=== PATIENT | female | born 1980 | race Caucasian/White ===

== ENCOUNTER 2022-06-19 10:10 | Day surgery (SDC) | payer BC ==
[2022-06-19] MEDS ORDERED: hydrALAZINE 20 MG/ML VIAL SLOW IVP PRN (12:10)
== END 2022-06-19 12:30 | disposition home health service (06) ==
LOC: CSHLD/OP 10:10
PROVIDERS: ATTEND Obstetrics & Gynecology
DX: O47.03 False labor before 37 completed weeks of gestation, third trimester (principal); O09.523 Supervision of elderly multigravida, third trimester; O99.513 Diseases of the respiratory system complicating pregnancy, third trimester; J45.909 Unspecified asthma, uncomplicated; Z88.5 Allergy status to narcotic agent; Z88.1 Allergy status to other antibiotic agents; Z3A.36 36 weeks gestation of pregnancy
CPT/HCPCS: 99283

== ENCOUNTER 2022-06-26 14:10 | Day surgery (SDC) | payer BC ==
[2022-06-26 14:47] VITALS: BMI 28.3
== END 2022-06-26 15:35 | disposition home or self-care (01) ==
LOC: CSHLD/OP 14:10
PROVIDERS: ATTEND Obstetrics & Gynecology
DX: O47.1 False labor at or after 37 completed weeks of gestation (principal); Z88.0 Allergy status to penicillin; Z88.5 Allergy status to narcotic agent; Z3A.37 37 weeks gestation of pregnancy
CPT/HCPCS: 99282

== ENCOUNTER 2022-07-06 09:57 | Inpatient (IN) | payer BC ==
[2022-07-06] MEDS ORDERED: hydrALAZINE 20 MG/ML VIAL SLOW IVP PRN ×2 (10:25→10:58)
[2022-07-06] MEDS ORDERED: Ondansetron ODT 4 MG TAB PO PRN (10:26)
[2022-07-06] MEDS ORDERED: Ibuprofen 800 MG TAB PO PRN (10:58)
[2022-07-06] MEDS ORDERED: Promethazine HCl 25 MG/ML VIAL IM PRN (10:58)
[2022-07-06] MEDS ORDERED: Ondansetron PF 4 MG/2 ML Vial IVP PRN (10:58)
[2022-07-06] MEDS ORDERED: Lidocaine 1% (PF) 30 ML VIAL SC PRN (10:58)
[2022-07-06] MEDS ORDERED: NS w/ Oxytocin 30 units 500 ML IV SCH (11:00)
[2022-07-06 12:00] LABS: Fetal Membranes Rupture No Membranes Rupture (No Rupture)
[2022-07-06 12:57] LABS: Hemoglobin 12.9 g/dL (12.0-15.5); Mean Corpuscular HGB CONC 34.9 g/dL (32.0-36.0); Mean Corpuscular Hemoglobin 29.9 pg (27.0-33.0); Mean Corpuscular Volume 85.8 fl (81.6-98.3); Mean Platelet Volume 12.5 fl (7.4-10.4); Platelet Count 242 10x3/uL (150-450); RBC Distribution Width 13.2 % (11.5-14.5); Red Blood Cell (RBC) Count 4.31 10x6/uL (3.90-5.03); White Blood Cell (WBC) Count 9.9 10x3/uL (3.5-10.5)
[2022-07-06 13:22] LABS: HBSAg Index 0.14 S/CO (0-0.99); Hep B Surf Ag Non-Reactive S/CO (NonReactive)
[2022-07-06 13:23] LABS: Syphilis Antibody Nonreactive (Nonreactive); Syphilis Antibody Index 0.03 S/CO (<1.00 Non-Reactive)
[2022-07-06] MEDS ORDERED: Butorphanol Tartrate 1 MG/ML VIAL ONE ×3 (13:35→21:11)
[2022-07-06] MEDS: Misoprostol 100 MCG TAB PO SCH ×2 (13:39→16:49)
[2022-07-06 14:39] LABS: SARS-CoV-2 NAA Rapid Test Not Detected (NotDetected)
[2022-07-06] MEDS ORDERED: Lidocaine 2% MPF 10 ML AMP (For Epidural Use) ONE (19:05)
[2022-07-06] MEDS ORDERED: Bupivacaine/Epinephrine 0.25% 30 ML VIAL ONE (19:05)
[2022-07-06] MEDS: Lactated Ringer's 1,000 ML IV SCH (21:13)
[2022-07-07] MEDS ORDERED: Butorphanol Tartrate 1 MG/ML VIAL ONE (01:57)
[2022-07-07] MEDS: Misoprostol 100 MCG TAB PO SCH ×6 (01:59→17:32)
[2022-07-07 02:02] VITALS: BMI 28.3
[2022-07-07] MEDS ORDERED: Butorphanol Tartrate 1 MG/ML VIAL SLOW IVP PRN (04:00)
[2022-07-07] MEDS: Lactated Ringer's 1,000 ML IV SCH ×2 (06:43→08:46)
[2022-07-07] MEDS ORDERED: Fentanyl 2 mcg/Bup 0.1% Cadd 100 ML ONE (07:36)
[2022-07-07] MEDS: Fentanyl 2 mcg/Bupivacaine 0.1% Cassette 100 ML EPIDURAL SCH ×2 (08:30→13:37)
[2022-07-07] MEDS ORDERED: Moisturizing Cream (Eucerin) 113 GM JAR TOP PRN ×2 (08:35→15:07)
[2022-07-07] MEDS ORDERED: ePHEDrine Sulfate 50 MG/10 ML VIAL SLOW IVP PRN (08:35)
[2022-07-07] MEDS ORDERED: Naloxone HCl 0.4 mg/ml Vial IVP PRN ×4 (08:35→15:07)
[2022-07-07] MEDS ORDERED: Promethazine HCl 25 MG/ML VIAL IM PRN ×2 (08:35→15:07)
[2022-07-07] MEDS ORDERED: Lactated Ringer's 500 ML IV PRN (08:35)
[2022-07-07] MEDS ORDERED: Ondansetron PF 4 MG/2 ML Vial IVP PRN ×3 (08:35→17:11)
[2022-07-07] MEDS ORDERED: Acetaminophen 325 MG TAB PO PRN (08:35)
[2022-07-07] MEDS ORDERED: diphenhydrAMINE 50 MG/ML VIAL IVP PRN ×2 (08:35→15:07)
[2022-07-07] MEDS ORDERED: Communication Order-Pharmacy FS SCH ×2 (08:45→15:15)
[2022-07-07] MEDS ORDERED: Bicitra 30 ML UDCUP PO PRN (13:34)
[2022-07-07] MEDS ORDERED: Famotidine/PF 20 mg/2ml Vial SLOW IVP PRN (13:34)
[2022-07-07] MEDS ORDERED: CEFAZOLIN 2 GM in Sodium Chloride 0.9% 100 ML IVPB SCH (13:45)
[2022-07-07] MEDS ORDERED: Azithromycin 500 MG in Sodium Chloride 0.9% 250 ML 250 ML IVPB SCH (13:45)
[2022-07-07] MEDS ORDERED: Morphine PF 10 MG/10 ML VIAL ONE (13:55)
[2022-07-07] MEDS ORDERED: Midazolam HCl 2 mg/2 ml Vial ONE (13:55)
[2022-07-07] MEDS ORDERED: Fentanyl 100 MCG/2 ML VIAL ONE (13:55)
[2022-07-07] MEDS ORDERED: Ondansetron PF 4 MG/2 ML Vial ONE (13:55)
[2022-07-07] MEDS ORDERED: Fentanyl 100 MCG/2 ML VIAL SLOW IVP PRN (15:07)
[2022-07-07] MEDS ORDERED: Meperidine HCl/PF 25 MG/ML VIAL SLOW IVP PRN (15:07)
[2022-07-07] MEDS ORDERED: Naloxone HCl 0.4 mg/ml Vial IV PRN (15:07)
[2022-07-07] MEDS ORDERED: Ondansetron HCl/PF 4 MG/2 ML Vial IVP PRN (15:07)
[2022-07-07] MEDS ORDERED: Promethazine HCl 25 MG SUPP PR PRN (15:07)
[2022-07-07] MEDS ORDERED: Ketorolac Tromethamine 30 MG/ML VIAL IVP SCH (15:15)
[2022-07-07] MEDS ORDERED: Boostrix 0.5 ML (Tdap) VIAL (>/=7 yrs of age) IM ONE (17:11)
[2022-07-07] MEDS ORDERED: Lanolin Ointment 7 GM TUBE TOP PRN (17:11)
[2022-07-07] MEDS ORDERED: NS w/ Oxytocin 30 units 500 ML IV SCH (17:11)
[2022-07-07] MEDS ORDERED: Bisacodyl 10 MG SUPP PR PRN (17:11)
[2022-07-07] MEDS ORDERED: hydrALAZINE 20 MG/ML VIAL SLOW IVP PRN (17:11)
[2022-07-07] MEDS: Ketorolac Tromethamine 30 MG/ML VIAL IVP PRN (17:22)
[2022-07-07] MEDS: Ferrous Sulfate 325 MG TAB PO SCH (22:28)
[2022-07-07] MEDS: Docusate 100 MG CAP PO SCH (22:28)
[2022-07-08] MEDS: Ketorolac Tromethamine 30 MG/ML VIAL IVP PRN ×3 (00:12→14:12)
[2022-07-08] MEDS ORDERED: HYDROcodone/Acetaminophen 5/325 mg Tablet PO PRN ×2 (03:15)
[2022-07-08 04:01] LABS: Hemoglobin 10.1 g/dL (12.0-15.5); Mean Corpuscular HGB CONC 33.6 g/dL (32.0-36.0); Mean Corpuscular Hemoglobin 29.6 pg (27.0-33.0); Mean Corpuscular Volume 88.3 fl (81.6-98.3); Mean Platelet Volume 11.8 fl (7.4-10.4); Platelet Count 177 10x3/uL (150-450); RBC Distribution Width 13.2 % (11.5-14.5); Red Blood Cell (RBC) Count 3.41 10x6/uL (3.90-5.03); White Blood Cell (WBC) Count 12.8 10x3/uL (3.5-10.5)
[2022-07-08] MEDS: Ferrous Sulfate 325 MG TAB PO SCH ×2 (08:10→21:17)
[2022-07-08] MEDS: traMADol HCl 50 MG TAB PO PRN ×3 (09:17→21:13)
[2022-07-08] MEDS: Docusate 100 MG CAP PO SCH ×2 (09:18→21:13)
[2022-07-08] MEDS: Prenatal Vitamin 1 TAB PO SCH (09:18)
[2022-07-08] MEDS: Simethicone Chewable 80 MG TAB PO PRN ×2 (16:54→21:13)
[2022-07-08] MEDS: Ibuprofen 800 MG TAB PO SCH (22:03)
[2022-07-08] MEDS ORDERED: traMADol HCl 50 MG TAB PO SCH (23:15)
[2022-07-09] MEDS: traMADol HCl 50 MG TAB PO PRN ×4 (03:17→17:47)
[2022-07-09] MEDS: Ibuprofen 800 MG TAB PO SCH ×3 (05:04→21:16)
[2022-07-09] MEDS: Docusate 100 MG CAP PO SCH ×2 (07:30→21:16)
[2022-07-09] MEDS: Ferrous Sulfate 325 MG TAB PO SCH ×2 (07:30→21:16)
[2022-07-09] MEDS: Prenatal Vitamin 1 TAB PO SCH (07:30)
[2022-07-09] MEDS: Simethicone Chewable 80 MG TAB PO PRN (17:49)
[2022-07-10] MEDS: traMADol HCl 50 MG TAB PO PRN ×2 (01:20→08:27)
[2022-07-10] MEDS: Ibuprofen 800 MG TAB PO SCH (05:24)
[2022-07-10] MEDS: Ferrous Sulfate 325 MG TAB PO SCH (08:24)
[2022-07-10] MEDS: Prenatal Vitamin 1 TAB PO SCH (08:25)
[2022-07-10] MEDS: Docusate 100 MG CAP PO SCH (08:25)
[2022-07-10 09:26] VITALS: BP 127/69; TEMP 98.4
== END 2022-07-10 10:45 | disposition home or self-care (01) | DRG 788 ==
LOC: CSHERS 09:57 → CSHLD/OP 10:20 → CSHLD 18:24 → CSHPP 07-07 17:59
PROVIDERS: ADMIT Obstetrics & Gynecology; ATTEND Obstetrics & Gynecology
PROC: 10907ZC Drainage of Amniotic Fluid, Therapeutic from Products of Conception, Via Natural or Artificial Opening (ICD-10-PCS; 2022-07-06)
PROC: 3E0P7VZ Introduction of Hormone into Female Reproductive, Via Natural or Artificial Opening (ICD-10-PCS; 2022-07-06)
PROC: 10D00Z1 Extraction of Products of Conception, Low, Open Approach (ICD-10-PCS; principal; 2022-07-07)
DX: O63.0 Prolonged first stage (of labor) (principal); O99.334 Smoking (tobacco) complicating childbirth; Z3A.39 39 weeks gestation of pregnancy; Z37.0 Single live birth; Z20.822 Contact with and (suspected) exposure to COVID-19; Z88.1 Allergy status to other antibiotic agents; Z88.0 Allergy status to penicillin; Z88.6 Allergy status to analgesic agent; F17.210 Nicotine dependence, cigarettes, uncomplicated; O62.1 Secondary uterine inertia; O32.8XX0 Maternal care for other malpresentation of fetus, not applicable or unspecified; O61.0 Failed medical induction of labor
CPT/HCPCS: 36415; 51702; 84112; 85027; 86762; 86780; 86850; 86900; 86901; 87340; 99285; J0595; J1200; J1885; J2250; J2274; J2405; J3010; J7120; Q0162